=== PATIENT | female | born 1940 | race Caucasian/White ===

== ENCOUNTER 2023-04-30 11:57 | Inpatient (IN) | payer MEDICARE, BC, SELFPAY ==
[2023-04-28] VITALS (7 sets, daily range): BP systolic 118–156; BP diastolic 54–75; BMI 38.1
[2023-04-28 15:28] LABS: % Basophils 0.2 % (0-2); % Eosinophils 0.7 % (0-6); % Immature Granulocytes 0.9 % (0-0.5); % Lymphocytes 7.9 % (20.5-51.1); % Monocytes 6.6 % (1.7-9.3); % Neutrophils 83.7 % (42.2-75.2); Absolute Eosinophils 0.1 10^3/uL (0-0.7); Absolute Immature Granulocytes 0.2 10^3/uL (0-0.05); Absolute Lymphocytes 1.5 10^3/uL (1.2-3.4); Absolute Monocytes 1.3 10^3/uL (0.1-0.6); Absolute Neutrophils 15.9 10^3/uL (1.4-6.5); Hemoglobin 14.3 g/dL (12.0-16.0); Mean Corp Hgb Conc. 35.8 g/dL (33.0-37.0); Mean Corpuscular Volume 86.6 fL (81.0-99.0); Mean Platelet Volume 9.7 fL (7.4-10.4); Nucleated Red Blood Cells % 0 %; Platelet Count 344 10^3/uL (130-400); Red Blood Cell Count 4.62 10^6/uL (4.20-5.40); Red Cell Dist. Width 12.5 % (11.5-14.5)
[2023-04-28 15:53] LABS: Troponin I 0.057 ng/ml
[2023-04-28 16:06] LABS: D-Dimer 2.18 ug/mlFEU (0.00-0.50)
--- NOTE | 2023-04-28 17:14 | ED.GENMED ---
History of Present Illness
General
Chief Complaint: Chest Pain
Source: patient and spouse
Exam Limitations: none
Time Seen by Provider: 04/28/23 15:20
Nursing documentation reviewed up to this point in time: agreed with
Travel History
Have you had any contact with someone who has COVID-19?: No
Do you have any symptoms of coronavirus? Fever > 100 degrees, chills, cough, shortness of breath, sore throat, loss of taste or smell, muscle aches, or headache?: No
History of Present Illness
History of Present Illness:
82-year-old female with past medical history of COPD, hypertension hyperlipidemia, GERD presenting to the emergency department today with concerns of ongoing shortness of breath. Was discharged from the hospital 1 week ago for COPD exacerbation.
Initially symptoms were improving but over the past few days has had significant worsening shortness of breath and some intermittent chest tightness.
Past History
Past History
ED Past Medical History: COPD, GERD, HTN and Hypercholesterolemia
ED Past Surgical History: Cholecystectomy, (X 2) and Urological (Renal stent)
Social History
Tobacco: Former smoker
Alcohol: None
Personal:
Living: with family
Employment: Retired
Family History
Family History: Other (She has a mother with CHF)
Review of Systems
Review of Systems
Allergies reviewed?: Yes
All Other Systems: ROS reviewed and negative except as documented in HPI and ROS
Phy Exam
Physical Exam
Physical Exam:
GENERAL: Alert , in no apparent distress
EYE: pupils equal and reactive
NECK: Supple, no significant adenopathy.
ENT: o/p clr, mmm.
CARDIAC: Regular rate and rhythm .
LUNGS: Diffuse inspiratory and expiratory wheezing
ABDOMEN: Soft, without focal tenderness, no r/g, no cvat
NEUROLOGICAL: Alert and oriented, no focal neuro deficits
SKIN: Warm and dry, skin intact.
MUSCULOSKELETAL: No edema, well perfused.
PSYCH: Normal and appropriate interaction.
Scores
Heart Score for Chest Pain Patients
STEMI patient?: No
History: Slightly or Non-Suspicious
ECG: Nonspecific Repolarization
Age: >/= 65 years
Risk Factors: >/= 3 Risk Factors or History of CAD
Troponin: >1 - <3 x Normal Limit
Heart Score for Chest Pain Patients: 6
Heart Score Risk: 20.3% MACE over next 6 weeks
Course
Orders/Labs/Results
Orders:
Orders
04/28/23 15:07
Electrocardiogram (*1) Urgent
Reason for Study: Chest Pain
04/28/23 15:08
EKG- Treatment ONCE
04/28/23 15:20
Complete Blood Count/With Diff Urgent
Troponin I Urgent
04/28/23 15:37
Chest [CR Chest - 2 Views ] Urgent
Comment:
Reason For Exam: cp
04/28/23 15:46
D-Dimer Urgent
04/28/23 16:13
CT Chest Pe Study Urgent
Comment:
Reason For Exam: cp, elevated dimer
04/28/23 17:16
Dexamethasone Sod Phosphate [Decadron] 10 mg IV NOW STA
Ipratropium/Albuterol Sulfate [Duoneb] 3 ml INH R NOW ONE
04/28/23 17:17
Comprehensive Metabolic Panel Urgent
04/28/23 20:45
Admit/Transfer Patient As Directed
Co-Sign Provider:
Level of Care: Observation services
Assign to:: Telemetry
Physician / Group: liz
Diagnosis: copd exacerbation
Reason for Telemetry: Arrhythmia
Date to Stop Telemetry: 05/01/23
Time to Stop Telemetry: 11:00
Code Status As Directed
Resuscitation Status: Full Code
04/28/23 21:00
Doxycycline [Vibramycin] 100 mg PO Q12
05/01/23 11:00
DC Protocol for Telemetry ONCE
Abnormal Lab Results
04/28/23 04/28/23 04/28/23
15:20 15:46 17:17
WBC 19.0 H 10^3/uL
(4.8-10.8)
Abs Immat Gran (auto) 0.2 H 10^3/uL
(0-0.05)
Absolute Neuts (auto) 15.9 H 10^3/uL
(1.4-6.5)
Absolute Monos (auto) 1.3 H 10^3/uL
(0.1-0.6)
Immature Gran % 0.9 H %
(0-0.5)
Neutrophils % 83.7 H %
(42.2-75.2)
Lymphocytes % 7.9 L %
(20.5-51.1)
D-Dimer 2.18 H ug/mlFEU
(0.00-0.50)
Sodium 125 L mmol/L
(135-145)
Chloride 96 L mmol/L
(98-107)
Carbon Dioxide 21 L mmol/L
(22-30)
BUN 35 H mg/dl
(7-17)
Creatinine 1.3 H mg/dL
(0.6-1.0)
Calcium 8.0 L mg/dl
(8.4-10.2)
AST 41 H U/L
(14-36)
ALT 73 H U/L
(0-35)
Troponin I 0.057 H* ng/ml
Total Protein 5.9 L g/dl
(6.3-8.2)
04/28/23 15:20
04/28/23 17:17
Vital Signs
Initial and Last Documented VS:
Initial Vital Signs
Temp Pulse Resp BP Pulse Ox
97.5 F 83 16 142/75 97
04/28/23 15:08 04/28/23 15:08 04/28/23 15:08 04/28/23 15:08 04/28/23 15:08
Last Documented Vital Signs
Temp Pulse Resp BP Pulse Ox
98.1 F 92 24 137/62 97
04/28/23 19:21 04/28/23 21:47 04/28/23 21:47 04/28/23 21:47 04/28/23 21:47
MDM/Problems Addressed
MDM/Problems Addressed:
82-year-old female presenting to the emergency department with worsening shortness of breath over the past few days but specifically worsening today. Also has generalized weakness and some chest tightness. Recently was in the hospital until 1 week
ago for COPD exacerbation initially had improving symptoms for the first few days, but worsening over the past few days as well. During her hospitalization claims she had mild chest discomfort but it has been worsening. Considering recent
hospitalization PE considered dimer was ordered and elevated to 2.18 CT scan was ordered. She did have wheezing and was treated for ongoing COPD exacerbation. CT scan without emergent findings. Patient was treated for ongoing COPD exacerbation.
Concerns that this is not improving at home will need admission for further treatment. Additionally patient with sodium of 125 which will need additional treatment as well. Mild elevation of troponin level EKG unchanged unlikely to be ACS at this
time.
*Critical Care Note
Total Time (30-74mins, 75-104mins- exclusive of procedures): Not Applicable
ED Attending Note
-
Portions of this chart may have been created with voice recognition software.� Occasional wrong word or��sound alike� substitutions may have occurred due to the inherent limitations of voice recognition software.
Discharge Plan
Interventions
Interventions:
*Risk Screen - Suicide Last Done: 04/28/23 15:10
*General Assessment Last Done: 04/28/23 15:10
*Neglect/Abuse Screening Last Done: 04/28/23 15:10
ED- Fall Risk Assessment Last Done: 04/28/23 19:21
*ED COVID-19 Vaccine History Last Done: 04/28/23 15:10
ED- Cardiac Assessment Last Done: 04/28/23 19:21
[2023-04-28] MEDS: DUONEB 3 ML INH (17:38)
[2023-04-28] MEDS: DECADRON 10 MG IV (17:39)
[2023-04-28 17:48] LABS: ALT (SGPT) 73 U/L (0-35); AST (SGOT) 41 U/L (14-36); Albumin 3.6 g/dl (3.5-5.0); Alkaline Phosphatase 61 U/L (38-126); Blood Urea Nitrogen 35 mg/dl (7-17); Carbon Dioxide 21 mmol/L (22-30); Chloride 96 mmol/L (98-107); Glucose 96 mg/dl (70-99); Potassium 3.9 mmol/L (3.5-5.1); Sodium 125 mmol/L (135-145); Total Bilirubin 1.1 mg/dl (0.2-1.3); Total Protein 5.9 g/dl (6.3-8.2); eGFR 41.31
--- NOTE | 2023-04-28 20:50 | HPS.HSE ---
Family Physician
-
Family Physician: Thom Jones
Chief Complaint
-
shortness of breath
History of Present Illness
82-year-old female past medical history of COPD, obstructive sleep apnea, right breast cancer status postmastectomy hypertension, CKD 3B, diabetes, hypothyroidism, hyperlipidemia presenting for ongoing shortness of breath. She was discharged 1 week
ago for COPD exacerbation. Initially symptoms were improving but over the past few days she has had significantly worsening shortness of breath. She denies any significant cough. She has some chest tightness which is worse when she touches the
area associate with some nausea but denies vomiting. Denies any diarrhea. Her appetite has been decreased. She denies any lower extremity edema. She is supposed to follow 46 ounce fluid restriction which she has been following. She denies any
fevers or chills. She denies any sore throat.
She takes torsemide for lower extremity edema.
She is a former smoker. She denies any alcohol use.
Medical History
Past Medical History
Past Medical History: Reports Other (COPD, obstructive sleep apnea, right breast cancer status postmastectomy hypertension, CKD 3B, diabetes, hypothyroidism, hyperlipidemia)
Past Surgical History: Reports Other (Cholecystectomy, (X 2) and Urological (Renal stent))
Social History
Tobacco: Former Smoker
Alcohol: None
Drug: None
Family History
Family History: Not pertinent
Allergies / Home Medications
Allergies reflects when Allergies were last updated in [facility].
Home Medications with original date entered in [facility]
Allergy/Medication List:
Allergies
Allergy/AdvReac Type Severity Reaction Status Date / Time
hydrocodone Allergy Shortness Verified 04/21/23 15:35
of Breath
Sulfa (Sulfonamide Allergy Hives Verified 04/21/23 15:35
Antibiotics)
tramadol Allergy Shortness Verified 04/21/23 15:35
of Breath
Home Medications
amlodipine 10 mg tablet 10 mg PO DAILY Blood pressure 12/19/19
aspirin 81 mg chewable tablet 81 mg PO DAILY Blood clot prevention/tx 12/19/19
atorvastatin 80 mg tablet 80 mg PO HS High cholesterol 12/19/19
cetirizine 10 mg tablet 10 mg PO DAILY Allergies 12/19/19
famotidine 40 mg tablet 40 mg PO HS Gastrointestinal issue 12/19/19
levalbuterol HCl 1.25 mg/3 mL solution for nebulization 1.25 mg inhalation R Q6HPRN PRN sob/wheezing 12/19/19
levothyroxine 50 mcg tablet 50 mcg PO DAILY Thyroid 12/19/19
lisinopril 40 mg tablet 40 mg PO DAILY Blood pressure 12/19/19
torsemide 5 mg tablet 5 mg PO Q48H@0800 Fluid retention/Swelling 12/19/19
zolpidem 5 mg tablet 5 mg PO HS PRN Sleep 12/19/19
albuterol sulfate 90 mcg/actuation aerosol inhaler 2 puff inhalation R Q4HPRN PRN sob/wheezing 01/27/22
dapagliflozin propanediol 10 mg tablet (Farxiga) 10 mg PO DAILY Heart Failure 01/27/22
fluticasone fur. 100 mcg-umeclid 62.5 mcg-vilant 25 mcg inhalat.powder (Trelegy Ellipta) 1 inh inhalation R DAILY 04/20/23
prednisone 10 mg tablet 10 mg PO DIRECTED #30 tabs 04/23/23
acetaminophen 500 mg tablet (Tylenol Extra Strength) 500 mg PO Q6H PRN mild pain 04/28/23
Review of Systems
-
History Source: Patient
A 12 point ROS was completed and negative except as noted: Yes
Constitutional: Reports No Symptoms
EENT: Reports No Symptoms
Respiratory: Reports See HPI
Cardiac: Reports See HPI
Abdomen/GI: Reports No Symptoms
: Reports No Symptoms
Musculoskeletal: Reports No Symptoms
Skin: Reports No Symptoms
Neurological: Reports No Symptoms
Endocrine: Reports No Symptoms
Hematologic/Lymphatic: Reports No Symptoms
Psych: Reports No Symptoms
Physical Exam
Vital Signs
Vital Signs
Temp Pulse Resp BP Pulse Ox
98.1 F 84 20 144/61 94
04/28/23 19:21 04/28/23 20:13 04/28/23 20:13 04/28/23 20:13 04/28/23 20:13
Physical Exam
General: Well Developed, Well Nourished and No Apparent Distress
HEENT: NormoCephalic, Moist mucous membranes and Atraumatic
Respiratory: Wheezes
Cardiac: S1/S2 and Regular Rhythm; No Murmur or Rub
GI: Soft, Non Tender, Non Distended and Normal Bowel Sounds; No Organomegaly
Rectal: Deferred by Provider
Musculoskeletal: No Clubbing, No Cyanosis and No Edema
Skin: No Rash
Neuro: Nonfocal/grossly intact
Laboratory Results
-
04/28/23 15:20
04/28/23 17:17
Laboratory Results
Total Bilirubin 1.1 mg/dl (0.2-1.3) 04/28/23 17:17
AST 41 U/L (14-36) H 04/28/23 17:17
ALT 73 U/L (0-35) H 04/28/23 17:17
Alkaline Phosphatase 61 U/L (38-126) 04/28/23 17:17
Troponin I 0.057 ng/ml H* 04/28/23 15:20
Data Reviewed
-
Lab Data: Labs Reviewed by me
Old Records: Reviewed
Impression/Plan
-
IMPRESSION:
PLAN:
# COPD exacerbation
-Bilateral wheezing on examination
-Recheck COVID and influenza
-CT PE shows chronic complete atelectasis of the right middle lobe, stable 4 mm solid pulm nodule left upper lobe
-Dexamethasone 4 mg every 8 hours
-DuoNebs every 6 hours
-Continue Trelegy Ellipta
-Incentive spirometry
-Doxycycline
# Leukocytosis secondary to steroid use
-Continue to monitor
# Worsening of chronic hyponatremia likely due to poor solute intake
-Fluid restriction 40 ounces
-Continue torsemide
# Mild transaminitis
-Continue to monitor
# Non-MN troponin elevation
-Troponin more or less stable at 0.057 from 0.042 and 0.05 previously
-EKG shows normal sinus rhythm
-Continue aspirin
Left upper lobe pulmonary nodule
-Outpatient follow-up
Obstructive sleep apnea
-Continue CPAP
Chronic lower extremity edema
-Continue torsemide
CKD 3b
-Renal function at baseline
Essential hypertension
-Continue amlodipine
Type 2 diabetes
-Continue dapagliflozin
-Send sliding scale
Right breast cancer status postmastectomy
Hypothyroidism
-Continue levothyroxine
Hyperlipidemia
-Continue statin
Full code
DVT prophylax�heparin
Regular diet
[2023-04-28] MEDS: LIPITOR 80 MG PO (22:51)
[2023-04-28] MEDS: PEPCID 40 MG PO (22:51)
[2023-04-28] MEDS: VIBRAMYCIN 100 MG PO (22:52)
[2023-04-28] MEDS: DECADRON 4 MG IV (23:29)
[2023-04-28 23:53] LABS: Troponin I 0.056 ng/ml
[2023-04-29] VITALS (7 sets, daily range): BP systolic 106–149; BP diastolic 59–77; PULSE 85; BMI 38.1
[2023-04-29 03:59] LABS: COVID-19 Antigen Negative (Negative)
[2023-04-29 05:19] LABS: % Basophils 0.1 % (0-2); % Lymphocytes 2.7 % (20.5-51.1); % Monocytes 0.6 % (1.7-9.3); % Neutrophils 95.6 % (42.2-75.2); Absolute Immature Granulocytes 0.1 10^3/uL (0-0.05); Absolute Lymphocytes 0.3 10^3/uL (1.2-3.4); Absolute Monocytes 0.1 10^3/uL (0.1-0.6); Absolute Neutrophils 10.3 10^3/uL (1.4-6.5); Hemoglobin 12.5 g/dL (12.0-16.0); Mean Corp Hgb Conc. 34.7 g/dL (33.0-37.0); Mean Corpuscular Volume 89.3 fL (81.0-99.0); Mean Platelet Volume 10.3 fL (7.4-10.4); Nucleated Red Blood Cells % 0 %; Platelet Count 276 10^3/uL (130-400); Red Blood Cell Count 4.03 10^6/uL (4.20-5.40); Red Cell Dist. Width 12.2 % (11.5-14.5); White Blood Cell Count 10.7 10^3/uL (4.8-10.8)
[2023-04-29] MEDS: SYNTHROID 50 MCG PO (05:36)
[2023-04-29 05:43] LABS: Troponin I 0.055 ng/ml
[2023-04-29 05:45] LABS: Blood Urea Nitrogen 36 mg/dl (7-17); Calcium 7.7 mg/dl (8.4-10.2); Carbon Dioxide 19 mmol/L (22-30); Chloride 97 mmol/L (98-107); Estimated Creatinine Clearance 35 ml/min; Glucose 119 mg/dl (70-99); Potassium 4.7 mmol/L (3.5-5.1); Sodium 126 mmol/L (135-145); eGFR 45.48
[2023-04-29 07:07] LABS: Glucose - Point of Care 109 mg/dl (70-99)
[2023-04-29] MEDS: SYMBICORT 80/4.5 MCG INHALER 2 PUFF INH ×2 (07:24→19:25)
[2023-04-29] MEDS: SPIRIVA RESPIMAT 2.5 MCG INH (07:24)
[2023-04-29] MEDS: DUONEB 3 ML INH (07:24)
--- NOTE | 2023-04-29 08:40 | W.PN.HOSP.TC ---
Today's Communication/Plan
-
Continue IV steroids, bronchodilators.
Assessment / Plan
Assessment / Plan
Physical exam:
General: Well Developed, Well Nourished and No Apparent Distress
HEENT: Normocephalic, Atraumatic and Moist Mucous Membranes
Respiratory: Bilateral wheezing, no crackles.
Cardiac: Regular Rhythm and S1/S2
GI: Soft, Nontender and Nondistended
Musculoskeletal: No Clubbing, No Cyanosis and No Edema
Neuro: Awake, Alert and Oriented
Psych: Calm
A/P:
# COPD exacerbation
-Rechecked COVID and influenza-->negative
-CT PE shows chronic complete atelectasis of the right middle lobe, stable 4 mm solid pulm nodule left upper lobe
-IV Dexamethasone 4 mg every 8 hours
-DuoNebs every 6 hours
-Continue Trelegy Ellipta
-Incentive spirometry
-Doxycycline
# Leukocytosis secondary to steroid use
-Continue to monitor
# Worsening of chronic hyponatremia likely due to poor solute intake
-Na 125-->126
-Fluid restriction 40 ounces
-Continue torsemide
-Cont to monitor
# Mild transaminitis
-Continue to monitor
# Non-MN troponin elevation
-Troponin more or less stable at 0.057 from 0.042 and 0.05 previously-->today down 0.055
-EKG shows normal sinus rhythm
-Continue aspirin
Left upper lobe pulmonary nodule
-Outpatient follow-up
Obstructive sleep apnea
-Continue CPAP
Chronic lower extremity edema
-Continue torsemide
CKD 3b
-Renal function at baseline
Essential hypertension
-Continue amlodipine
Type 2 diabetes
-Continue dapagliflozin
-Send sliding scale
Right breast cancer status postmastectomy
Hypothyroidism
-Continue levothyroxine
Hyperlipidemia
-Continue statin
Full code
DVT prophylax�heparin
Regular diet
Anticipated Discharge: > 48 hours
Subjective/Interval History
-
Date of Service: April 29, 2023
Patient still short of breath, some cough.
Objective Data
-
Labs:
Laboratory Results
04/29/23 04/29/23
04:46 04:47
WBC 10.7
Hgb 12.5
Hct 36.0 L
Plt Count 276
Sodium 126 L
Potassium 4.7
Chloride 97 L
Carbon Dioxide 19 L
BUN 36 H
Creatinine 1.2 H
Glucose 119 H
Calcium 7.7 L
Vital Signs:
Vital Signs
Temp Pulse Resp BP Pulse Ox
98.7 F 86 16 110/63 97
04/29/23 07:05 04/29/23 07:31 04/29/23 07:31 04/29/23 07:05 04/29/23 07:31
[2023-04-29] MEDS: NOVOLOG FLEXPEN-LOW RESISTANCE SC (09:21)
[2023-04-29] MEDS: FARXIGA 10 MG PO (09:24)
[2023-04-29] MEDS: DEMADEX 5 MG PO (09:24)
[2023-04-29] MEDS: ZYRTEC 10 MG PO (09:24)
[2023-04-29] MEDS: VIBRAMYCIN 100 MG PO ×2 (09:24→20:25)
[2023-04-29] MEDS: NORVASC 10 MG PO (09:24)
[2023-04-29] MEDS: LOW STRENGTH ASPIRIN 81 MG PO (09:24)
[2023-04-29] MEDS: HEPARIN 5000 UNITS SC ×2 (09:25→20:25)
[2023-04-29] MEDS: DECADRON 4 MG IV ×2 (09:25→15:59)
[2023-04-29] MEDS: ZESTRIL 40 MG PO (09:26)
[2023-04-29] MEDS: VENTOLIN NEBULES 2.5 MG INH ×3 (11:32→19:25)
--- NOTE | 2023-04-29 11:45 | CM ---
Chart reviewed. Spoke with pt at bedside
Pt lives with , ranch style home
Describes self as independent
Has walker - does not use. Has CPAP
Denies SNF/HH in past
PCP - Dr.J Jones
Pharm - [facility]
Will have ride at d/c
Discussed [facility]
CM will follow for needs
Plan - Anticipate home - needs tbd
[2023-04-29 11:57] LABS: Glucose - Point of Care 151 mg/dl (70-99)
[2023-04-29] MEDS: NOVOLOG FLEXPEN-LOW RESISTANCE 1 UNITS SC ×2 (13:38→16:59)
[2023-04-29 16:27] LABS: Glucose - Point of Care 164 mg/dl (70-99)
[2023-04-29] MEDS: LIPITOR 80 MG PO (20:26)
[2023-04-29] MEDS: PEPCID 40 MG PO (20:26)
[2023-04-29 21:53] LABS: Glucose - Point of Care 172 mg/dl (70-99)
[2023-04-30] MEDS: DECADRON 4 MG IV ×3 (00:59→15:12)
[2023-04-30 04:23] VITALS: BP 98/53
[2023-04-30 05:24] LABS: ALT (SGPT) 60 U/L (0-35); AST (SGOT) 25 U/L (14-36); Alkaline Phosphatase 45 U/L (38-126); Blood Urea Nitrogen 49 mg/dl (7-17); Calcium 7.7 mg/dl (8.4-10.2); Carbon Dioxide 19 mmol/L (22-30); Chloride 98 mmol/L (98-107); Direct Bilirubin 0.5 mg/dl (0.0-0.4); Estimated Creatinine Clearance 28 ml/min; Glucose 164 mg/dl (70-99); Magnesium 2.6 mg/dl (1.6-2.3); Potassium 4.6 mmol/L (3.5-5.1); Sodium 128 mmol/L (135-145); Total Bilirubin 0.7 mg/dl (0.2-1.3); Total Protein 5.1 g/dl (6.3-8.2); eGFR 34.79
[2023-04-30 07:14] LABS: Glucose - Point of Care 154 mg/dl (70-99)
[2023-04-30 07:21] VITALS: BP 128/88
[2023-04-30] MEDS: SPIRIVA RESPIMAT 2.5 MCG 2 PUFF INH (07:32)
[2023-04-30] MEDS: VENTOLIN NEBULES 2.5 MG INH ×4 (07:32→19:15)
[2023-04-30] MEDS: SYMBICORT 80/4.5 MCG INHALER 2 PUFF INH ×2 (07:32→19:16)
[2023-04-30] MEDS: NOVOLOG FLEXPEN-LOW RESISTANCE 1 UNITS SC ×3 (07:46→16:55)
[2023-04-30] MEDS: HEPARIN 5000 UNITS SC ×2 (07:47→20:19)
[2023-04-30] MEDS: SYNTHROID 50 MCG PO (07:47)
[2023-04-30] MEDS: ZESTRIL 40 MG PO (07:47)
[2023-04-30] MEDS: VIBRAMYCIN 100 MG PO ×2 (07:47→20:19)
[2023-04-30] MEDS: LOW STRENGTH ASPIRIN 81 MG PO (07:47)
[2023-04-30] MEDS: FARXIGA 10 MG PO (07:47)
[2023-04-30] MEDS: ZYRTEC 10 MG PO (07:47)
[2023-04-30] MEDS: NORVASC 10 MG PO (07:47)
--- NOTE | 2023-04-30 07:51 | W.PN.HOSP.TC ---
Today's Communication/Plan
-
Continue IV steroids, bronchodilators. Continue monitor sodium. Continue monitor renal function.
Assessment / Plan
Assessment / Plan
Physical exam:
General: Well Developed, Well Nourished and No Apparent Distress
HEENT: Normocephalic, Atraumatic and Moist Mucous Membranes
Respiratory: Bilateral wheezing, no crackles.
Cardiac: Regular Rhythm and S1/S2
GI: Soft, Nontender and Nondistended
Musculoskeletal: No Clubbing, No Cyanosis and No Edema
Neuro: Awake, Alert and Oriented
Psych: Calm
A/P:
# COPD exacerbation
-Rechecked COVID and influenza-->negative
-CT PE shows chronic complete atelectasis of the right middle lobe, stable 4 mm solid pulm nodule left upper lobe
-IV Dexamethasone 4 mg every 8 hours
-DuoNebs every 6 hours
-Continue Trelegy Ellipta
-Incentive spirometry
-Doxycycline
-Updated son over the phone today-he is also looking into her medications at home to make sure she is on the right ones.
# Leukocytosis secondary to steroid use
-Continue to monitor
# Worsening of chronic hyponatremia likely due to poor solute intake
-Na 125-->126-->128
-Fluid restriction 40 ounces
-Continue torsemide
-Cont to monitor
# Mild transaminitis
-Continue to monitor
# Non-MO troponin elevation
-Troponin more or less stable at 0.057 from 0.042 and 0.05 previously-->today down 0.055
-EKG shows normal sinus rhythm
-Continue aspirin
Left upper lobe pulmonary nodule
-Outpatient follow-up
Obstructive sleep apnea
-Continue CPAP
Chronic lower extremity edema
-Continue torsemide
CKD 3b
-Renal function with Cr 1.5 from 1.2 yesterday
-Cont to monitor
Essential hypertension
-Continue amlodipine
Type 2 diabetes
-Continue dapagliflozin
-Send sliding scale
Right breast cancer status postmastectomy
Hypothyroidism
-Continue levothyroxine
Hyperlipidemia
-Continue statin
Full code
DVT prophylax�heparin
Regular diet
Anticipated Discharge: > 48 hours
Subjective/Interval History
-
Date of Service: April 30, 2023
Patient still short of breath, still coughing. Afebrile
Objective Data
-
Labs:
Laboratory Results
04/30/23
04:34
PT 14.0
INR 1.10
Sodium 128 L
Potassium 4.6
Chloride 98
Carbon Dioxide 19 L
BUN 49 H
Creatinine 1.5 H
Glucose 164 H
Calcium 7.7 L
Total Bilirubin 0.7
AST 25
ALT 60 H
Alkaline Phosphatase 45
Vital Signs:
Vital Signs
Temp Pulse Resp BP Pulse Ox
96.1 F L 85 16 128/88 97
04/30/23 07:21 04/30/23 07:35 04/30/23 07:35 04/30/23 07:21 04/30/23 07:35
I&O
04/29/23 04/30/23 05/01/23
06:59 06:59 06:59
Intake Total 780 / 780
Balance 780 / 780
Review of Systems
-
All other systems: Reviewed and negative
[2023-04-30 11:32] LABS: Glucose - Point of Care 173 mg/dl (70-99)
[2023-04-30 15:08] VITALS: BP 104/53
[2023-04-30] MEDS: FLUSH (NSS) 1 FLUSH IV (15:13)
[2023-04-30 16:37] LABS: Glucose - Point of Care 169 mg/dl (70-99)
[2023-04-30] MEDS: PEPCID 40 MG PO (20:19)
[2023-04-30] MEDS: LIPITOR 80 MG PO (20:19)
[2023-04-30 21:32] LABS: Glucose - Point of Care 198 mg/dl (70-99)
[2023-04-30 23:35] VITALS: BP 135/59
[2023-05-01] MEDS: DECADRON 4 MG IV ×3 (00:05→20:56)
[2023-05-01] MEDS: SYNTHROID 50 MCG PO (06:02)
[2023-05-01 07:23] LABS: Glucose - Point of Care 120 mg/dl (70-99)
[2023-05-01] MEDS: NOVOLOG FLEXPEN-LOW RESISTANCE SC ×3 (07:27→17:31)
[2023-05-01] MEDS: SPIRIVA RESPIMAT 2.5 MCG 2 PUFF INH (07:29)
[2023-05-01] MEDS: SYMBICORT 80/4.5 MCG INHALER 2 PUFF INH ×2 (07:30→20:08)
[2023-05-01] MEDS: VENTOLIN NEBULES 2.5 MG INH ×4 (07:31→20:08)
[2023-05-01 07:35] VITALS: BP 109/71
[2023-05-01 07:57] LABS: Blood Urea Nitrogen 53 mg/dl (7-17); Calcium 8.2 mg/dl (8.4-10.2); Carbon Dioxide 20 mmol/L (22-30); Chloride 101 mmol/L (98-107); Estimated Creatinine Clearance 28 ml/min; Glucose 118 mg/dl (70-99); Magnesium 2.5 mg/dl (1.6-2.3); Potassium 5.3 mmol/L (3.5-5.1); Sodium 130 mmol/L (135-145); eGFR 34.79
--- NOTE | 2023-05-01 08:27 | W.PN.HOSP.TC ---
Today's Communication/Plan
-
Continue steroids, bronchodilators. Discharge planning
Assessment / Plan
Assessment / Plan
Physical exam:
General: Well Developed, Well Nourished and No Apparent Distress
HEENT: Normocephalic, Atraumatic and Moist Mucous Membranes
Respiratory: Bilateral wheezing but less overall, no crackles.
Cardiac: Regular Rhythm and S1/S2
GI: Soft, Nontender and Nondistended
Musculoskeletal: No Clubbing, No Cyanosis and No Edema
Neuro: Awake, Alert and Oriented
Psych: Calm
A/P:
# COPD exacerbation
-Rechecked COVID and influenza-->negative
-CT PE shows chronic complete atelectasis of the right middle lobe, stable 4 mm solid pulm nodule left upper lobe
-IV Dexamethasone 4 mg every 8 hours--> changed to 4 mg every 12 hours today and will switch to oral tomorrow.
-DuoNebs every 6 hours
-Continue Trelegy Ellipta
-Incentive spirometry
-Doxycycline
-Updated son over the phone yesterday.
-PT evaluation today
-Assess for home oxygen tomorrow
# Leukocytosis secondary to steroid use
-WBC down to 10.7 so no need to monitor anymore.
# Worsening of chronic hyponatremia likely due to poor solute intake
-Na 125-->126-->128-->130
-Fluid restriction 40 ounces
-Continue torsemide
-Cont to monitor sodium in a.m.
# Mild transaminitis
-Continue to monitor as outpatient
# Non-NM troponin elevation
-Troponin more or less stable at 0.057 from 0.042 and 0.05 previously-->today down 0.055
-EKG shows normal sinus rhythm
-Continue aspirin
Left upper lobe pulmonary nodule
-Outpatient follow-up
Obstructive sleep apnea
-Continue CPAP
Chronic lower extremity edema
-Continue torsemide
CKD 3b
-Renal function with Cr 1.5 which is stable from 1.5 yesterday
-Cont to monitor
Hyperkalemia
-Very mild, 5.3 today
-Hold HARINI inhibitor and repeat potassium tomorrow
Essential hypertension
-Continue amlodipine
Type 2 diabetes
-Continue dapagliflozin
-Send sliding scale
Right breast cancer status postmastectomy
Hypothyroidism
-Continue levothyroxine
Hyperlipidemia
-Continue statin
Full code
DVT prophylax�heparin
Regular diet
Anticipated Discharge: Within 24 hours
Subjective/Interval History
-
Date of Service: May 01, 2023
Patient feels better overall, less shortness of breath, less cough. She does have some shakiness.
Objective Data
-
Labs:
Laboratory Results
05/01/23
07:13
Sodium 130 L
Potassium 5.3 H
Chloride 101
Carbon Dioxide 20 L
BUN 53 H
Creatinine 1.5 H
Glucose 118 H
Calcium 8.2 L
Vital Signs:
Vital Signs
Temp Pulse Resp BP Pulse Ox
98.1 F 84 20 109/71 97
05/01/23 07:35 05/01/23 07:35 05/01/23 07:35 05/01/23 07:35 05/01/23 07:35
I&O
04/30/23 05/01/23 05/02/23
06:59 06:59 06:59
Intake Total 780 / 780 1020 / 1020
Balance 780 / 780 1020 / 1020
Review of Systems
-
All other systems: Reviewed and negative
[2023-05-01] MEDS: DEMADEX 5 MG PO (08:55)
[2023-05-01] MEDS: LOW STRENGTH ASPIRIN 81 MG PO (08:55)
[2023-05-01] MEDS: NORVASC 10 MG PO (08:55)
[2023-05-01] MEDS: ZYRTEC 10 MG PO (08:55)
[2023-05-01] MEDS: FARXIGA 10 MG PO (08:55)
[2023-05-01] MEDS: HEPARIN 5000 UNITS SC ×2 (08:55→20:51)
[2023-05-01] MEDS: VIBRAMYCIN 100 MG PO ×2 (08:55→20:54)
[2023-05-01] MEDS: ZESTRIL PO (08:56)
[2023-05-01 11:51] LABS: Glucose - Point of Care 135 mg/dl (70-99)
[2023-05-01] MEDS: MIRALAX 17 GRAMS PO (12:49)
[2023-05-01] MEDS: SENOKOT 8.59999999999999964 MG PO ×2 (12:49→20:54)
[2023-05-01 14:57] VITALS: PULSE 104; O2SAT 96
[2023-05-01 15:22] VITALS: BP 99/56
[2023-05-01 17:18] LABS: Glucose - Point of Care 129 mg/dl (70-99)
[2023-05-01] MEDS: LIPITOR 80 MG PO (20:54)
[2023-05-01] MEDS: PEPCID 40 MG PO (20:54)
[2023-05-01] MEDS: AMBIEN 5 MG PO (21:00)
[2023-05-01 21:15] LABS: Glucose - Point of Care 158 mg/dl (70-99)
[2023-05-01 23:42] VITALS: BP 128/66
[2023-05-02] MEDS: SYNTHROID 50 MCG PO (05:41)
[2023-05-02] MEDS: SPIRIVA RESPIMAT 2.5 MCG 2 PUFF INH (07:12)
[2023-05-02] MEDS: VENTOLIN NEBULES 2.5 MG INH (07:12)
[2023-05-02] MEDS: SYMBICORT 80/4.5 MCG INHALER 2 PUFF INH (07:12)
[2023-05-02 07:15] LABS: Glucose - Point of Care 123 mg/dl (70-99)
[2023-05-02] MEDS: NOVOLOG FLEXPEN-LOW RESISTANCE SC (07:30)
--- NOTE | 2023-05-02 07:32 | W.PN.HOSP.TC ---
Today's Communication/Plan
-
Continue current management. Discharge planning today.
Assessment / Plan
Assessment / Plan
Physical exam:
General: Well Developed, Well Nourished and No Apparent Distress
HEENT: Normocephalic, Atraumatic and Moist Mucous Membranes
Respiratory: Bilateral wheezing but less overall, no crackles.
Cardiac: Regular Rhythm and S1/S2
GI: Soft, Nontender and Nondistended
Musculoskeletal: No Clubbing, No Cyanosis and No Edema
Neuro: Awake, Alert and Oriented
Psych: Calm
A/P:
# COPD exacerbation
-Rechecked COVID and influenza-->negative
-CT PE shows chronic complete atelectasis of the right middle lobe, stable 4 mm solid pulm nodule left upper lobe
-IV Dexamethasone 4 mg every 8 hours--> changed to 4 mg every 12 hours today and will switch to oral today
-DuoNebs every 6 hours
-Continue Trelegy Ellipta
-Incentive spirometry
-Doxycycline
-Updated son over the phone yesterday.
-PT evaluation today
-Assess for home oxygen today
-ready for d/c
# Leukocytosis secondary to steroid use
-WBC down to 10.7 so no need to monitor anymore.
# Worsening of chronic hyponatremia likely due to poor solute intake
-Na 125-->126-->128-->130-->128
-Fluid restriction 40 ounces
-Continue torsemide
-Cont to monitor sodium in a.m.
# Mild transaminitis
-Continue to monitor as outpatient
# Non-DC troponin elevation
-Troponin more or less stable at 0.057 from 0.042 and 0.05 previously-->today down 0.055
-EKG shows normal sinus rhythm
-Continue aspirin
Left upper lobe pulmonary nodule
-Outpatient follow-up
Obstructive sleep apnea
-Continue CPAP
Chronic lower extremity edema
-Continue torsemide
CKD 3b
-Renal function with Cr 1.5 which is stable from 1.5 yesterday
-Cont to monitor
Hyperkalemia
-Back to normal today
-resume HARINI inhibitor
Essential hypertension
-Continue amlodipine
Type 2 diabetes
-Continue dapagliflozin
-Send sliding scale
Right breast cancer status postmastectomy
Hypothyroidism
-Continue levothyroxine
Hyperlipidemia
-Continue statin
Full code
DVT prophylax�heparin
Regular diet
Anticipated Discharge: Today
Subjective/Interval History
-
Date of Service: May 02, 2023
Patient denies any chest pain or shortness of breath. No nausea vomiting or diarrhea. Afebrile
Objective Data
-
Labs:
Laboratory Results
05/02/23
06:00
Sodium Pending
Potassium Pending
Chloride Pending
Carbon Dioxide Pending
BUN Pending
Creatinine Pending
Glucose Pending
Calcium Pending
Vital Signs:
Vital Signs
Temp Pulse Resp BP Pulse Ox
98.6 F 82 14 128/66 96
05/01/23 23:42 05/02/23 07:18 05/02/23 07:18 05/01/23 23:42 05/02/23 07:18
I&O
05/01/23 05/02/23 05/03/23
06:59 06:59 06:59
Intake Total 1020 / 1020 240 / 240
Balance 1020 / 1020 240 / 240
[2023-05-02 07:35] VITALS: BP 116/73
[2023-05-02] MEDS: LOW STRENGTH ASPIRIN 81 MG PO (07:40)
[2023-05-02] MEDS: NORVASC 10 MG PO (07:40)
[2023-05-02] MEDS: FARXIGA 10 MG PO (07:40)
[2023-05-02] MEDS: ZYRTEC 10 MG PO (07:40)
[2023-05-02] MEDS: MIRALAX 17 GRAMS PO (07:40)
[2023-05-02] MEDS: VIBRAMYCIN 100 MG PO (07:40)
[2023-05-02] MEDS: SENOKOT 8.59999999999999964 MG PO (07:40)
[2023-05-02] MEDS: HEPARIN 5000 UNITS SC (07:40)
[2023-05-02] MEDS: DELTASONE 40 MG PO (07:40)
[2023-05-02 10:48] LABS: Blood Urea Nitrogen 52 mg/dl (7-17); Calcium 8.3 mg/dl (8.4-10.2); Carbon Dioxide 17 mmol/L (22-30); Chloride 102 mmol/L (98-107); Estimated Creatinine Clearance 32 ml/min; Glucose 145 mg/dl (70-99); Potassium 4.9 mmol/L (3.5-5.1); Sodium 128 mmol/L (135-145); eGFR 41.31
[2023-05-02] MEDS: VENTOLIN NEBULES INH (11:14)
--- NOTE | 2023-05-02 11:14 | W.DCSUMMARY ---
Discharge Summary
Discharge Data
Date of Admission: 04/30/23
Date of Discharge: 05/02/23
-
Pending Results: No
Hospital Course
Patient 82 years old female with history of COPD, JANY, breast cancer, diabetes, presented to the hospital shortness of breath and cough and found to be in COPD exacerbation. She was treated with IV steroids, oral antibiotics for bronchitis, and
bronchodilators. She also had oxygen supplementation. She has been improving substantially. She is doing well on room air. Her steroids were switched to oral. We assessed for home oxygen needs and her pulse ox is 96% on room air at rest 95% on
ambulation. Patient is symptomatically better and feels back to her baseline. She will be continued on a tapering course of oral steroids as outpatient. She will be discharged in relatively stable condition today.
Discharge duration: 35 minutes
Discharge Plan
-
Patient Disposition: Home with Home Care
Discharge Diagnosis/Procedures: Chronic obstructive pulmonary disease exacerbation. Hyponatremia. Leukocytosis. Transaminitis. Nonmyocardial infarction troponin elevation. Left upper lobe pulmonary nodule. Obstructive sleep apnea. Chronic
lower extremity edema. Chronic kidney disease stage III. Hypertension. Diabetes mellitus type 2. History of breast cancer. History of hypothyroidism. Hyperlipidemia.
Diet: Low Cholesterol
Activity: As tolerated
Driving Restrictions: As prior to admission
Blood Work: Please PCP to order CBC, BMP within 1 week
Referrals:
Thom Jonse MD [Family Provider] - in less than 1 week
Prescriptions:
New
doxycycline hyclate 100 mg Capsule
100 mg PO Q12 1 Days Qty: 2 0RF
polyethylene glycol 3350 [HealthyLax] 17 gram Powder In Packet
17 g PO DAILY 14 Days Qty: 14 0RF
prednisone 10 mg Tablet
See Rx Instructions .ROUTE .COMPLEX Qty: 30 0RF
Rx Instructions:
Take By Mouth:
40 mg daily x3 days, 30 mg daily x3 days,
20 mg daily x3 days, 10 mg daily x3 days.
Continued
atorvastatin 80 MG tablet
80 mg PO HS
cetirizine 10 MG tablet
10 mg PO DAILY
famotidine 40 MG tablet
40 mg PO HS
amlodipine 10 MG tablet
10 mg PO DAILY
torsemide 5 MG tablet
5 mg PO Q48H@0800
levothyroxine 50 MCG tablet
50 mcg PO DAILY
aspirin 81 MG tablet,chewable
81 mg PO DAILY
zolpidem 5 MG tablet
5 mg PO HS PRN (Reason: Sleep)
Patient Comments:
04/28/2023, pt. filled this med. on 04/12/2023 for 30 tablets according to PDMP.
levalbuterol HCl 1.25 MG/3 ML solution for nebulization
1.25 mg inhalation R Q6HPRN PRN (Reason: sob/wheezing)
lisinopril 40 MG tablet
40 mg PO DAILY
albuterol sulfate 90 mcg/actuation Hfa Aerosol Inhaler
2 puff INHALATION R Q4HPRN PRN (Reason: sob/wheezing)
dapagliflozin propanediol [Farxiga] 10 mg Tablet
10 mg PO DAILY
Trelegy Ellipta 100-62.5-25 mcg blister with device
1 inh INHALATION R DAILY
acetaminophen [Tylenol Extra Strength] 500 mg Tablet
500 mg PO Q6H PRN (Reason: mild pain)
Discontinued
prednisone 10 mg tablet
10 mg PO DIRECTED
Patient Comments:
04/28/2023, per pt.'s family, pt. started taking this med. on Tuesday (04/24/2023). Pt. filled this med. on 04/23/2023.
Rx Instructions:
04/28/2023,
40 mg x 3 days
30 mg x 3 days
20 mg x 3 days
10 mg x 3 days
Discharge Orders:
Discharge Patient (As Directed); Ordered 05/02/23
Ordered By: Reginaldo Morton
Discharge Date and Time
Discharge Date/Time: 05/02/23 12:41
--- NOTE | 2023-05-02 12:04 | CM ---
CM reviewed chart and noted dc order
Bedside meeting with pt and son
VN vs SNF recommended
Pt requesting home with [facility]
Has 3 sons and multiple grandchildren that will assist daily
Per home O2, does not qualify
IMM verbally reviewed- copy provided
Referral to [facility] and pt accepted for service
VN order on chart
Discharge Disposition- home [place]
[phone]
== END 2023-05-02 12:41 | disposition home health service (06) | DRG 191 ==
LOC: 4 EAST ACU 11:57
PROVIDERS: Emergency Medicine; Nurse Practitioner Gerontology; Physician Assistant; ADMITTING PHYSICIAN Hospitalist; ATTENDING PHYSICIAN Hospitalist; EMERGENCY PHYSICIAN Emergency Medicine; FAMILY PHYSICIAN Family Medicine
DX: J44.1 Chronic obstructive pulmonary disease with (acute) exacerbation (principal); E87.1 Hypo-osmolality and hyponatremia; I5A Non-ischemic myocardial injury (non-traumatic); Z87.891 Personal history of nicotine dependence; R60.0 Localized edema; I12.9 Hypertensive chronic kidney disease with stage 1 through stage 4 chronic kidney disease, or unspecified chronic kidney disease; E11.22 Type 2 diabetes mellitus with diabetic chronic kidney disease; N18.32 Chronic kidney disease, stage 3b; E03.9 Hypothyroidism, unspecified; E78.00 Pure hypercholesterolemia, unspecified; G47.33 Obstructive sleep apnea (adult) (pediatric); Z85.3 Personal history of malignant neoplasm of breast; E87.5 Hyperkalemia
CPT/HCPCS: 71046; 71275; 80048; 80053; 82248; 82962; 83735; 84484; 85025; 85379; 85610; 87502; 87811; 93005; 94640; 94660; 96374; 97162; 99285; Q9967

== ENCOUNTER → 2023-05-06 08:40 | Outpatient (REF) | payer BC, SELFPAY ==
[2023-05-06 11:33] LABS: % Basophils 0.2 % (0-2); % Eosinophils 0.4 % (0-6); % Immature Granulocytes 2.1 % (0-0.5); % Lymphocytes 9.8 % (20.5-51.1); % Monocytes 4.1 % (1.7-9.3); % Neutrophils 83.4 % (42.2-75.2); Absolute Eosinophils 0.1 10^3/uL (0-0.7); Absolute Immature Granulocytes 0.4 10^3/uL (0-0.05); Absolute Lymphocytes 1.8 10^3/uL (1.2-3.4); Absolute Monocytes 0.7 10^3/uL (0.1-0.6); Absolute Neutrophils 14.9 10^3/uL (1.4-6.5); Hematocrit 30.3 % (37.0-47.0); Hemoglobin 10.5 g/dL (12.0-16.0); Mean Corp Hgb Conc. 34.7 g/dL (33.0-37.0); Mean Corpuscular Volume 89.4 fL (81.0-99.0); Mean Platelet Volume 10.3 fL (7.4-10.4); Nucleated Red Blood Cells % 0 %; Platelet Count 253 10^3/uL (130-400); Red Blood Cell Count 3.39 10^6/uL (4.20-5.40); Red Cell Dist. Width 12.6 % (11.5-14.5); White Blood Cell Count 17.9 10^3/uL (4.8-10.8)
[2023-05-06 11:59] LABS: Blood Urea Nitrogen 52 mg/dl (7-17); Calcium 8.3 mg/dl (8.4-10.2); Carbon Dioxide 20 mmol/L (22-30); Chloride 97 mmol/L (98-107); Glucose 79 mg/dl (70-99); Potassium 4.3 mmol/L (3.5-5.1); Sodium 128 mmol/L (135-145); eGFR 41.31
== END ==
LOC: RAD 08:40
PROVIDERS: ATTENDING PHYSICIAN Surgery Vascular Surgery; FAMILY PHYSICIAN Family Medicine
DX: I70.1 Atherosclerosis of renal artery (principal); I73.9 Peripheral vascular disease, unspecified; I77.9 Disorder of arteries and arterioles, unspecified; Z82.49 Family history of ischemic heart disease and other diseases of the circulatory system; N18.4 Chronic kidney disease, stage 4 (severe); E83.52 Hypercalcemia; E87.20 Acidosis, unspecified; N28.9 Disorder of kidney and ureter, unspecified; E87.1 Hypo-osmolality and hyponatremia; I77.1 Stricture of artery
CPT/HCPCS: 36415; 80048; 85025; 93880; 93922; 93925; 93975

== ENCOUNTER → 2023-06-15 07:14 | Outpatient (REF) | payer BC, SELFPAY ==
[2023-06-15 08:10] LABS: Urine Albumin Trace (Neg - Trace); Urine Bilirubin Negative (Negative); Urine Character Clear (Clear); Urine Color Yellow; Urine Glucose 3+ (Negative); Urine Ketone Negative (Negative); Urine Leukocyte Trace (Negative); Urine Nitrite Negative (Negative); Urine Occult Blood Negative (Negative); Urine Urobilinogen Negative (Neg - 1+)
[2023-06-15 08:26] LABS: Urine Red Blood Cell 0-2 /HPF (0-2)
== END ==
LOC: REG 07:14
PROVIDERS: ATTENDING PHYSICIAN Family Medicine
DX: R05.1 Acute cough (principal); R11.0 Nausea; N18.4 Chronic kidney disease, stage 4 (severe); K21.9 Gastro-esophageal reflux disease without esophagitis; J44.9 Chronic obstructive pulmonary disease, unspecified; J43.2 Centrilobular emphysema; I12.9 Hypertensive chronic kidney disease with stage 1 through stage 4 chronic kidney disease, or unspecified chronic kidney disease; I70.1 Atherosclerosis of renal artery
CPT/HCPCS: 71046; 81003; 81015

== ENCOUNTER → 2023-08-01 07:31 | Outpatient (REF) | payer BC, SELFPAY ==
[2023-08-01 09:01] LABS: Blood Urea Nitrogen 22 mg/dl (7-17); Calcium 9.8 mg/dl (8.4-10.2); Carbon Dioxide 24 mmol/L (22-30); Chloride 101 mmol/L (98-107); Glucose 109 mg/dl (70-99); Potassium 4.5 mmol/L (3.5-5.1); Sodium 135 mmol/L (135-145); eGFR 29.94
[2023-08-01 09:10] LABS: NT-proBNP 376 pg/ml
== END ==
LOC: REG 07:31
PROVIDERS: ATTENDING PHYSICIAN Internal Medicine Cardiovascular Disease; FAMILY PHYSICIAN Family Medicine
DX: I10 Essential (primary) hypertension (principal); N28.9 Disorder of kidney and ureter, unspecified; N18.4 Chronic kidney disease, stage 4 (severe)
CPT/HCPCS: 36415; 80048; 83880

== ENCOUNTER → 2023-09-01 06:40 | Outpatient (REF) | payer BC, SELFPAY ==
[2023-09-01 07:24] LABS: % Basophils 1.3 % (0-2); % Eosinophils 4.2 % (0-6); % Immature Granulocytes 0.4 % (0-0.5); % Lymphocytes 25.9 % (20.5-51.1); % Monocytes 7.6 % (1.7-9.3); % Neutrophils 60.6 % (42.2-75.2); Absolute Basophils 0.1 10^3/uL (0-0.2); Absolute Eosinophils 0.4 10^3/uL (0-0.7); Absolute Lymphocytes 2.2 10^3/uL (1.2-3.4); Absolute Monocytes 0.7 10^3/uL (0.1-0.6); Absolute Neutrophils 5.2 10^3/uL (1.4-6.5); Hematocrit 41.4 % (37.0-47.0); Hemoglobin 12.9 g/dL (12.0-16.0); Mean Corp Hgb Conc. 31.2 g/dL (33.0-37.0); Mean Corpuscular Hgb 26.9 pg (27.0-31.0); Mean Corpuscular Volume 86.3 fL (81.0-99.0); Mean Platelet Volume 10.2 fL (7.4-10.4); Nucleated Red Blood Cells % 0 %; Platelet Count 363 10^3/uL (130-400); Red Cell Dist. Width 13.8 % (11.5-14.5); White Blood Cell Count 8.5 10^3/uL (4.8-10.8)
[2023-09-01 07:44] LABS: ALT (SGPT) 19 U/L (0-35); AST (SGOT) 26 U/L (14-36); Albumin 4.5 g/dl (3.5-5.0); Alkaline Phosphatase 80 U/L (38-126); Blood Urea Nitrogen 24 mg/dl (7-17); Calcium 9.5 mg/dl (8.4-10.2); Carbon Dioxide 21 mmol/L (22-30); Chloride 104 mmol/L (98-107); Glucose 109 mg/dl (70-99); Potassium 5.1 mmol/L (3.5-5.1); Sodium 141 mmol/L (135-145); Total Bilirubin 0.5 mg/dl (0.2-1.3); Total Protein 7.1 g/dl (6.3-8.2); eGFR 29.94
== END ==
LOC: REG 06:40
PROVIDERS: ATTENDING PHYSICIAN Internal Medicine Hematology & Oncology; FAMILY PHYSICIAN Family Medicine
DX: C50.411 Malignant neoplasm of upper-outer quadrant of right female breast (principal)
CPT/HCPCS: 36415; 80053; 85025

== ENCOUNTER → 2023-09-14 06:26 | Outpatient (REF) | payer BC, SELFPAY ==
[2023-09-14 08:13] LABS: Iron 65 ug/dl (37-170)
[2023-09-14 08:23] LABS: Percent Saturation 17 % (20-50); Total Iron Binding Capacity 365 ug/dl (265-497)
[2023-09-14 08:43] LABS: Ferritin 11.1 ng/ml (11.1-264.0)
[2023-09-14 09:14] LABS: Folate 5.8 ng/ml (2.76-20); Vitamin B12 298 pg/ml (239-931)
== END ==
LOC: REG 06:26
PROVIDERS: ATTENDING PHYSICIAN Nurse Practitioner Family
DX: C50.411 Malignant neoplasm of upper-outer quadrant of right female breast (principal)
CPT/HCPCS: 36415; 82607; 82728; 82746; 83540; 83550

== ENCOUNTER → 2024-02-21 19:07 | Outpatient (REF) | payer BC, MEDICARE, SELFPAY | LOC: WDC 19:07 | PROVIDERS: ATTENDING PHYSICIAN Nurse Practitioner Family; FAMILY PHYSICIAN Family Medicine | DX: Z12.31 Encounter for screening mammogram for malignant neoplasm of breast (principal); C50.411 Malignant neoplasm of upper-outer quadrant of right female breast | CPT/HCPCS: 77063; 77067 ==

== ENCOUNTER → 2024-04-11 15:13 | Outpatient (REF) | payer BC, SELFPAY ==
[2024-04-11 16:02] LABS: Hematocrit 41.1 % (37.0-47.0); Hemoglobin 13.9 g/dL (12.0-16.0); Mean Corp Hgb Conc. 33.8 g/dL (33.0-37.0); Mean Corpuscular Hgb 29.8 pg (27.0-31.0); Mean Corpuscular Volume 88.2 fL (81.0-99.0); Mean Platelet Volume 9.6 fL (7.4-10.4); Platelet Count 358 10^3/uL (130-400); Red Blood Cell Count 4.66 10^6/uL (4.20-5.40); Red Cell Dist. Width 12.9 % (11.5-14.5); White Blood Cell Count 10.9 10^3/uL (4.8-10.8)
[2024-04-11 16:20] LABS: ALT (SGPT) 20 U/L (0-35); AST (SGOT) 27 U/L (14-36); Albumin 4.4 g/dl (3.5-5.0); Alkaline Phosphatase 86 U/L (38-126); Blood Urea Nitrogen 16 mg/dl (7-17); Calcium 9.4 mg/dl (8.4-10.2); Carbon Dioxide 22 mmol/L (22-30); Chloride 95 mmol/L (98-107); Glucose 119 mg/dl (70-99); Iron 97 ug/dl (37-170); Potassium 4.1 mmol/L (3.5-5.1); Sodium 130 mmol/L (135-145); Total Protein 7.2 g/dl (6.3-8.2)
[2024-04-11 16:29] LABS: Percent Saturation 34 % (20-50); Total Iron Binding Capacity 284 ug/dl (265-497)
[2024-04-11 16:48] LABS: TSH 1.92 uIU/ml (0.47-4.68)
[2024-04-12 08:51] LABS: Glycohemoglobin (HgbA1c) 5.9 % (4.0-5.6)
== END ==
LOC: RAD 15:13
PROVIDERS: ATTENDING PHYSICIAN Family Medicine
DX: R07.89 Other chest pain (principal); I13.0 Hypertensive heart and chronic kidney disease with heart failure and stage 1 through stage 4 chronic kidney disease, or unspecified chronic kidney disease; N18.4 Chronic kidney disease, stage 4 (severe); J43.2 Centrilobular emphysema; C50.411 Malignant neoplasm of upper-outer quadrant of right female breast; I77.9 Disorder of arteries and arterioles, unspecified; I70.1 Atherosclerosis of renal artery; G47.33 Obstructive sleep apnea (adult) (pediatric)
CPT/HCPCS: 36415; 71275; 80053; 83036; 83540; 83550; 84443; 85027; Q9967

== ENCOUNTER → 2024-04-27 07:06 | Outpatient (REF) | payer BC, SELFPAY ==
[2024-04-27 08:19] LABS: Hematocrit 43.6 % (37.0-47.0); Hemoglobin 14.4 g/dL (12.0-16.0); Mean Corpuscular Hgb 29.8 pg (27.0-31.0); Mean Corpuscular Volume 90.1 fL (81.0-99.0); Mean Platelet Volume 9.6 fL (7.4-10.4); Platelet Count 286 10^3/uL (130-400); Red Blood Cell Count 4.84 10^6/uL (4.20-5.40); Red Cell Dist. Width 13.2 % (11.5-14.5); White Blood Cell Count 7.5 10^3/uL (4.8-10.8)
[2024-04-27 08:49] LABS: ALT (SGPT) 18 U/L (0-35); AST (SGOT) 26 U/L (14-36); Albumin 4.7 g/dl (3.5-5.0); Alkaline Phosphatase 94 U/L (38-126); Blood Urea Nitrogen 16 mg/dl (7-17); Calcium 9.5 mg/dl (8.4-10.2); Carbon Dioxide 20 mmol/L (22-30); Chloride 99 mmol/L (98-107); Glucose 122 mg/dl (70-99); HDL Cholesterol 84 mg/dl; LDL Cholesterol, Calculated 59 mg/dl; Potassium 4.7 mmol/L (3.5-5.1); Sodium 134 mmol/L (135-145); Total Cholesterol 162 mg/dl (50-199); Total Protein 7.3 g/dl (6.3-8.2); Triglyceride 97 mg/dl (10-149); Very Low Density Lipoprotein 19 mg/dl (0-30); eGFR 37.56
[2024-04-27 10:05] LABS: Glycohemoglobin (HgbA1c) 5.9 % (4.0-5.6)
== END ==
LOC: REG 07:06
PROVIDERS: ATTENDING PHYSICIAN Family Medicine
DX: I13.0 Hypertensive heart and chronic kidney disease with heart failure and stage 1 through stage 4 chronic kidney disease, or unspecified chronic kidney disease (principal); N18.4 Chronic kidney disease, stage 4 (severe); J43.2 Centrilobular emphysema; C50.411 Malignant neoplasm of upper-outer quadrant of right female breast; I77.9 Disorder of arteries and arterioles, unspecified; G47.33 Obstructive sleep apnea (adult) (pediatric); I70.1 Atherosclerosis of renal artery; R07.89 Other chest pain
CPT/HCPCS: 36415; 80053; 80061; 83036; 85027

== ENCOUNTER → 2024-08-22 07:16 | Day surgery (SDC) | payer BC, SELFPAY ==
[2024-08-22 11:30] VITALS: BMI 31.2
[2024-08-22 11:31] VITALS: BP 179/96
== END ==
LOC: SDS 07:16
PROVIDERS: ATTENDING PHYSICIAN Internal Medicine Critical Care Medicine
DX: R59.0 Localized enlarged lymph nodes (principal)
CPT/HCPCS: 31629; 31654; 88173; 88305

== ENCOUNTER → 2024-10-04 07:15 | Outpatient (REF) | payer BC, SELFPAY ==
[2024-10-04 09:12] LABS: Hematocrit 45.6 % (37.0-47.0); Hemoglobin 15.7 g/dL (12.0-16.0); Mean Corp Hgb Conc. 34.4 g/dL (33.0-37.0); Mean Corpuscular Volume 86.5 fL (81.0-99.0); Nucleated Red Blood Cells % 0 %; Platelet Count 269 10^3/uL (130-400); Red Cell Dist. Width 13.5 % (11.5-14.5)
[2024-10-04 09:38] LABS: ALT (SGPT) 18 U/L (0-35); AST (SGOT) 24 U/L (14-36); Albumin 5.0 g/dl (3.5-5.0); Alkaline Phosphatase 71 U/L (38-126); Blood Urea Nitrogen 22 mg/dl (7-17); Calcium 10.1 mg/dl (8.4-10.2); Carbon Dioxide 18 mmol/L (22-30); Chloride 106 mmol/L (98-107); Glucose 109 mg/dl (70-99); HDL Cholesterol 89 mg/dl; LDL Cholesterol, Calculated 68 mg/dl; Potassium 4.5 mmol/L (3.5-5.1); Sodium 136 mmol/L (135-145); Total Protein 7.9 g/dl (6.3-8.2); Very Low Density Lipoprotein 18 mg/dl (0-30); eGFR 34.58
[2024-10-04 11:22] LABS: Glycohemoglobin (HgbA1c) 5.8 % (4.0-5.6)
[2024-10-04 11:52] LABS: Microalb - Urine Creatinine 37.400 mg/dl
[2024-10-04 11:54] LABS: Microalbumin, Random Urine 12.2 mg/dl (0.6-1.7)
== END ==
LOC: REG 07:15
PROVIDERS: ATTENDING PHYSICIAN Internal Medicine Hematology & Oncology; FAMILY PHYSICIAN Family Medicine
DX: C50.411 Malignant neoplasm of upper-outer quadrant of right female breast (principal); D51.9 Vitamin B12 deficiency anemia, unspecified; D52.9 Folate deficiency anemia, unspecified; N18.4 Chronic kidney disease, stage 4 (severe); J44.9 Chronic obstructive pulmonary disease, unspecified; J43.2 Centrilobular emphysema; I77.9 Disorder of arteries and arterioles, unspecified; I70.1 Atherosclerosis of renal artery; I12.9 Hypertensive chronic kidney disease with stage 1 through stage 4 chronic kidney disease, or unspecified chronic kidney disease; G47.33 Obstructive sleep apnea (adult) (pediatric); I35.1 Nonrheumatic aortic (valve) insufficiency; R09.02 Hypoxemia; R91.1 Solitary pulmonary nodule; F01.B0 Vascular dementia, moderate, without behavioral disturbance, psychotic disturbance, mood disturbance, and anxiety
CPT/HCPCS: 36415; 80053; 80061; 82043; 82570; 83036; 85025

== ENCOUNTER → 2024-11-27 07:39 | Outpatient (REF) | payer BC, SELFPAY | LOC: RAD 07:39 | PROVIDERS: ATTENDING PHYSICIAN Internal Medicine Hematology & Oncology; FAMILY PHYSICIAN Family Medicine | DX: Z12.31 Encounter for screening mammogram for malignant neoplasm of breast (principal) | CPT/HCPCS: 77080 ==